=== PATIENT | female | born 1985 | race Caucasian/White ===

== ENCOUNTER → 2019-12-26 | Outpatient (CLI) | payer OTHER | LOC: COL.RAD 09:22 | DX: M79.601 Pain in right arm (principal) ==

== ENCOUNTER → 2021-03-12 | Outpatient (CLI) | payer OTHER | LOC: COL.RAD 09:15 | DX: M54.12 Radiculopathy, cervical region (principal); M94.8X1 Other specified disorders of cartilage, shoulder; M67.813 Other specified disorders of tendon, right shoulder | CPT/HCPCS: J3301; Q9967 ==